=== PATIENT | male | born 1965 | race American Indian/Alaskan Native ===

== ENCOUNTER 2020-01-28 01:36 | Emergency (ER) | payer OTHER ==
--- NOTE | 2020-01-28 08:48 | Emergency Department Report ---
ED General Adult HPI - General Chief complaint: Skin/Abscess/Foreign Body Stated complaint: HIP PAIN X 3 DAYS Time Seen by Provider: 01/28/20 08:07 Source: patient, EMS Mode of arrival: Ambulatory Limitations: No Limitations - History of Present Illness Initial comments: 54-year-old male with a past medical history of HIV presents to the ER today complaining of rectal pain secondary to a chronic wound. Patient states that he has had this chronic wound/lesions to his buttock/perirectal area for about a year. Patient states that he has had multiple biopsies to the wound by a doctor Raj at [facility]. He states that the biopsy results showed "dysplasia". He states that he is currently under the care of his ID specialist Dr. Stover, and furniture painter Dr Diaz at [facility]. He states that to help with the pain, his pain management doctor wants him to do a procedure where they would "clip the nerves around the wound" but this is scheduled for February 19. He states that he has been taking Motrin 800 mg, as well as using 5% lidocaine cream, and another 3% cream that starts with the letter "H" but they have not been helping the pain. Patient reports mild white drainage from the wound, but otherwise he reports no swelling, no fever, chills or any other associated symptoms at this time. Patient states that he has been compliant with his HIV medication. His viral load is undetectable and his last CD4 count is 425. He states that he has not been on any oral antibiotics for his wound in a while. MD Complaint: Buttocks/Rectal Pain/Wound -: year(s) (1) Location: buttocks (radha rectal ) - Related Data Previous Rx's Medication Instructions Recorded Last Taken Type Sulfamethoxazole/Trimethoprim 1 each PO BID #14 tablet 01/28/20 Unknown Rx [Bactrim DS TAB] traMADoL [Ultram] 50 - 100 mg PO Q4HR PRN #12 tablet 01/28/20 Unknown Rx ED Review of Systems ROS: Stated complaint: HIP PAIN X 3 DAYS Other details as noted in HPI Comment: All other systems reviewed and negative Skin: rash, lesions, other (chronic wound) ED Past Medical Hx - Past Medical History Previous Medical History?: Yes Hx Psychiatric Treatment: Yes (Bipolar, anxiety) Hx HIV: Yes - Surgical History Past Surgical History?: Yes Additional Surgical History: Biopsy - Social History Smoking Status: Former Smoker Substance Use Type: Marijuana - Medications Home Medications: Home Medications Medication Instructions Recorded Confirmed Last Taken Type Sulfamethoxazole/Trimethoprim 1 each PO BID #14 tablet 01/28/20 Unknown Rx [Bactrim DS TAB] traMADoL [Ultram] 50 - 100 mg PO Q4HR PRN #12 tablet 01/28/20 Unknown Rx ED Physical Exam - General Limitations: No Limitations General appearance: alert, in no apparent distress - ENT ENT exam: Present: normal exam, mucous membranes moist - Neck Neck exam: Present: normal inspection - Respiratory Respiratory exam: Absent: respiratory distress - Cardiovascular Cardiovascular Exam: Present: regular rate - Rectal Rectal exam: Present: other (Chronic appearing growths as well as superficial ulcerations noted to intergluteal cleft/radha rectal area without induration, cellulitis, fluctuance or pus drainage. Some of those areas are irritated and inflammed and very ttp) - Neurological Exam Neurological exam: Present: alert, oriented X3, CN II-XII intact - Skin Skin exam: Present: intact ED Course Vital Signs 01/28/20 01/28/20 02:01 09:27 Temperature 98.4 F 98.1 F Pulse Rate 98 H 87 Respiratory 18 85 H Rate Blood Pressure 149/103 Blood Pressure 128/101 [Right] O2 Sat by Pulse 96 98 Oximetry Critical care attestation.: If time is entered above; I have spent that time in minutes in the direct care of this critically ill patient, excluding procedure time. ED Disposition Clinical Impression: Wound of buttock, Rectal pain, chronic Disposition: [id number] TO HOME OR SELFCARE Is pt being admited?: No Does the pt Need Aspirin: No Condition: Stable Instructions: Chronic Pain, Adult, Wound Care, Adult Additional Instructions: It is important that you try to keep those areas clean daily with soap and water. Do not use alcohol or peroxide. You can use neosporin after cleaning the areas. Continue to apply your creams/gel given to you by your doctor. Continue the motrin. Take the antibiotics and pain medications prescribed her as directed. Follow up with your ID specialist and furniture painter next week. Return to ED if your symptoms changes or worsens. Prescriptions: Sulfamethoxazole/Trimethoprim [Bactrim DS TAB] 1 each PO BID #14 tablet traMADoL [Ultram] 50 - 100 mg PO Q4HR PRN #12 tablet PRN Reason: Pain Referrals: PRIMARY CARE, [Primary Care Provider] - 3-5 Days Time of Disposition: 08:53
[2020-01-28] MEDS ORDERED: KETOROLAC 60 MG/2 ML INJ IM ONE (08:54)
[2020-01-28] MEDS ORDERED: HYDROcodone/ACETAMINOPHEN 10-325MG TAB PO ONE (08:54)
[2020-01-28 09:28] VITALS: BP 128/101
== END 2020-01-28 09:27 | disposition home or self-care (01) ==
LOC: ED 01:36
DX: S31.809A Unspecified open wound of unspecified buttock, initial encounter (principal); K62.89 Other specified diseases of anus and rectum; F41.9 Anxiety disorder, unspecified; F32.9 Major depressive disorder, single episode, unspecified; F12.10 Cannabis abuse, uncomplicated; Z87.891 Personal history of nicotine dependence; Z79.899 Other long term (current) drug therapy; Z21 Asymptomatic human immunodeficiency virus [HIV] infection status; X58.XXXA Exposure to other specified factors, initial encounter; Y93.89 Activity, other specified; Y92.89 Other specified places as the place of occurrence of the external cause; Y99.8 Other external cause status
CPT/HCPCS: 96372; 99283; J1885